=== PATIENT | male | born 1975 | race Caucasian/White ===

== ENCOUNTER 2018-01-09 02:14 | Emergency (ER) | payer OTHER ==
[~2018-01-09] VITALS: Ht 185.4 cm; Wt 114.8 kg
[2018-01-09 03:28] LABS: CALCIUM 8.5 mg/dL (8.5-10.1); CHLORIDE SERUM 105 mmol/L (98-107); GFR1 > 60 mL/min; GLUCOSE SERUM 92 mg/dL (74-106); POTASSIUM SERUM 3.7 mmol/L (3.5-5.1); SODIUM SERUM 140 mmol/L (136-145)
[2018-01-09 03:31] LABS: BASOPHIL % 0.5 % (0-2); PLATELET COUNT 181 x10^3mcL (130-400)
[2018-01-09 03:40] LABS: RED CELL DISTRIBUTION WIDTH 14.8 % (11.5-14.5)
[2018-01-09 03:41] LABS: ALBUMIN 3.4 g/dL (3.4-5.0); ALKALINE PHOSPHATASE 115 U/L (46-116); ALT/SGPT 144 U/L (16-63); AST/SGOT 101 U/L (15-37); BILIRUBIN TOTAL 0.34 mg/dL (0.20-1.00); FREE T4 0.99 ng/dL (0.76-1.46); TOTAL PROTEIN, SERUM 7.8 g/dL (6.4-8.2)
[2018-01-09 05:11] LABS: microscopic required? NO
[2018-01-09 05:38] LABS: AMPHETAMINE QUAL UR POSITIVE (NEG <=1000)
[2018-01-09 05:52] LABS: UA SPECIFIC GRAVITY >=1.030 (1.005-1.035); urine erythrocyte NEGATIVE (NEGATIVE)
[2018-01-09 06:13] VITALS: BP 135/88
== END 2018-01-09 06:13 | disposition home or self-care (01) ==
LOC: ED 02:14
PROVIDERS: Emergency Medicine
DX: F07.81 Postconcussional syndrome (principal)
CPT/HCPCS: 36415; 84439; G0480; Q0092

== ENCOUNTER 2018-01-16 16:53 | Emergency (ER) | payer OTHER ==
[~2018-01-16] VITALS: Ht 185.4 cm; Wt 102.5 kg
[2018-01-16 16:55] VITALS: Ht 185.4 cm; Wt 102.5 kg
[2018-01-16 18:06] VITALS: BP 134/87
== END 2018-01-16 18:06 | disposition other institution (70) ==
LOC: ED 16:53
DX: Z02.89 Encounter for other administrative examinations (principal); I87.2 Venous insufficiency (chronic) (peripheral)

== ENCOUNTER 2018-03-02 15:15 | Emergency (ER) | payer OTHER ==
[~2018-03-02] VITALS: Ht 185.4 cm; Wt 106.6 kg
[2018-03-02 15:30] VITALS: BP 134/85; Ht 185.4 cm; Wt 106.6 kg
== END 2018-03-02 16:02 | disposition other institution (70) ==
LOC: ED 15:15
DX: Z02.89 Encounter for other administrative examinations (principal)
CPT/HCPCS: 99406

== ENCOUNTER 2018-05-07 05:09 | Emergency (ER) | payer OTHER ==
[~2018-05-07] VITALS: Ht 185.4 cm; Wt 102.2 kg
[2018-05-07 05:49] VITALS: BP 150/86
== END 2018-05-07 05:49 | disposition home or self-care (01) ==
LOC: ED 05:09
DX: L02.415 Cutaneous abscess of right lower limb (principal)

== ENCOUNTER 2018-05-13 23:38 | Emergency (ER) | payer OTHER ==
[~2018-05-13] VITALS: Ht 182.9 cm; Wt 103.4 kg
[2018-05-14 00:42] LABS: BASOPHIL % 0.9 % (0-2); PLATELET COUNT 291 x10^3mcL (130-400); RED CELL DISTRIBUTION WIDTH 13.2 % (11.5-14.5)
[2018-05-14 00:51] LABS: CALCIUM 8.7 mg/dL (8.5-10.1); CARBON DIOXIDE 28.8 mmol/L (21-32); CHLORIDE SERUM 104 mmol/L (98-107); CREATININE SERUM 0.8 mg/dL (0.7-1.3); GFR1 > 60 mL/min; GLUCOSE SERUM 101 mg/dL (74-106); POTASSIUM SERUM 3.6 mmol/L (3.5-5.1); SODIUM SERUM 138 mmol/L (136-145)
[2018-05-14 00:56] LABS: ALKALINE PHOSPHATASE 62 U/L (46-116); ALT/SGPT 65 U/L (16-63); AST/SGOT 77 U/L (15-37); BILIRUBIN TOTAL 0.35 mg/dL (0.20-1.00); TOTAL PROTEIN, SERUM 7.7 g/dL (6.4-8.2)
[2018-05-14 00:58] LABS: ALBUMIN 3.2 g/dL (3.4-5.0)
[2018-05-14 02:35] VITALS: BP 129/74
== END 2018-05-14 02:35 | disposition left against medical advice (07) ==
LOC: ED 23:38
PROVIDERS: Emergency Medicine
DX: R45.851 Suicidal ideations (principal); F11.229 Opioid dependence with intoxication, unspecified; T40.1X1A Poisoning by heroin, accidental (unintentional), initial encounter; Y92.89 Other specified places as the place of occurrence of the external cause
CPT/HCPCS: 36415; G0480

== ENCOUNTER 2019-04-05 09:23 | Emergency (ER) | payer OTHER ==
[~2019-04-05] VITALS: Ht 182.9 cm; Wt 83.9 kg
[2019-04-05 09:26] VITALS: BP 133/68; Ht 182.9 cm; Wt 83.9 kg
== END 2019-04-05 09:57 | disposition other institution (70) ==
LOC: ED 09:23
DX: Z02.89 Encounter for other administrative examinations (principal)

== ENCOUNTER 2019-10-24 04:37 | Emergency (ER) | payer OTHER ==
[~2019-10-24] VITALS: Ht 185.4 cm; Wt 81.6 kg
[2019-10-24 04:43] VITALS: Ht 185.4 cm; Wt 81.6 kg
[2019-10-24 06:29] VITALS: BP 123/69
== END 2019-10-24 06:29 | disposition other institution (70) ==
LOC: ED 04:37
DX: F11.10 Opioid abuse, uncomplicated (principal); E11.9 Type 2 diabetes mellitus without complications; I10 Essential (primary) hypertension
CPT/HCPCS: 82962

== ENCOUNTER 2019-10-24 04:37 | Emergency (ER) | payer OTHER | END 2019-10-24 06:29 | disposition other institution (70) | LOC: ED 04:37 | DX: Z02.89 Encounter for other administrative examinations (principal) ==